=== PATIENT | male | born 1960 | race Hispanic/Latino ===

== ENCOUNTER 2019-02-02 13:42 | Inpatient (IN) | payer BC ==
--- NOTE | 2019-02-02 14:05 | Emergency Department Report ---
Blank Doc - Documentation Documentation: 58*-year-old male that presents with lung cancer. Stated has left [facility] due to insurance. Was admitted. This initial assessment/diagnostic orders/clinical plan/treatment(s) is/are subject to change based on patient's health status, clinical progression and re-assessment by fellow clinical providers in the ED. Further treatment and workup at subsequent clinical providers discretion. Patient/guardians urged not to elope from the ED as their condition may be serious if not clinically assessed and managed. Initial orders include: 1- Patient sent to MAIN ED for further evaluation and treatment 2- RN to get patients labs and scans from [facility].
[2019-02-02 17:51] LABS: Hematocrit 23.8 % (35.5-45.6); Hemoglobin 7.8 gm/dl (11.8-15.2); Mean Corpuscular HGB Conc 33 % (32-34); Mean Corpuscular Volume 94 fl (84-94); Platelet Count 438 K/mm3 (140-440); Red Blood Count 2.53 M/mm3 (3.65-5.03); Red Cell Distribution Width 14.1 % (13.2-15.2)
[2019-02-02] MEDS ORDERED: SODIUM CHLORIDE 0.9% 500 ML 500 ML IV ONE (17:58)
[2019-02-02] MEDS ORDERED: HYDROmorphone 1 MG/1 ML INJ IV ONE ×2 (17:58→19:42)
--- NOTE | 2019-02-02 18:02 | Emergency Department Report ---
ED General Adult HPI - General Chief complaint: Weakness Stated complaint: LEFT [facility]/LUNG CANCER Time Seen by Provider: 02/02/19 14:04 Source: patient, family, RN notes reviewed, old records reviewed Mode of arrival: Ambulatory Limitations: No Limitations - History of Present Illness Initial comments: This is a 58-year-old gentleman. Primary care Dr.: Dr. Reyes Oncology: Dr. Fountain; [phone] This is an unfortunate 58-year-old gentleman who is not known to this provider previously. On 01/09/2018, at [facility] the patient had a CT angiogram of the chest which showed a solid nodule with lobular borders measu ring 2.2 cm in the left upper lung lobe, highly concerning for potential primary malignancy. In addition, an enlarged left hilar lymph node conglomerate which partially encompasses the left upper lobe pulmonary artery branches was noted, and no pulmonary embolism is noted. There was concern for possible lung cancer, and the patient had an biopsy performed, which as per his oncologist verbal report was inconclusive as far as tissue diagnosis. The patient was evaluated at [facility] yesterday, with generalized pain, weakness, malaise and fatigue. Apparently he's been having progressive weakness, and poor oral intake. In the emergency room yesterday, he was found to be tachycardic to 118-132, was found to be hyperkalemic with potassium of 6.1, renal insufficiency with creatinine of 2.24, and a calcium of 17.2. He was treated with a hyperkalemia cocktail, and admitted to the medical service for hypercalcemia, and hyperkalemia. Apparently today he left that hospital AGAINST MEDICAL ADVICE, as per their includes documentation, the patient was in the process of transferring to [facility] due to insurance issues, but it is documented that the patient left AMA before this could be completed. On review of systems, the patient next oh completed headache or midline neck pain. He has left-sided superior scapular pain. He has no chest pain or abdominal pain. He has diffuse spinal pain. He has no bladder or bowel retention/incontinence In addition, it appears that the patient was given IV hydration and pamidronate 1 yesterday. -: Gradual Location: back, left, upper extremity Severity scale (0 -10): 10 Quality: aching Consistency: intermittent Improves with: rest Worsens with: movement - Related Data Home Medications Medication Instructions Recorded Confirmed Last Taken Allopurinol 02/02/19 Unknown Lisinopril [Zestril] 20 mg PO QDAY 02/02/19 02/02/19 Unknown cloNIDine [Catapres] 0.2 mg PO DAILY 02/02/19 02/02/19 Unknown fentaNYL [Fentanyl] 1 each TD QDAY 02/02/19 02/02/19 Unknown levoFLOXacin [Levaquin TAB] 500 mg PO QDAY 02/02/19 02/02/19 Unknown Allergies Allergy/AdvReac Type Severity Reaction Status Date / Time No Known Allergies Allergy Unverified 02/02/19 13:48 ED Review of Systems ROS: Stated complaint: LEFT [facility]/LUNG CANCER Other details as noted in HPI Constitutional: malaise, weakness Eyes: denies: eye discharge ENT: denies: congestion Respiratory: denies: wheezing Cardiovascular: denies: syncope Gastrointestinal: denies: abdominal pain, nausea, vomiting Genitourinary: denies: dysuria Musculoskeletal: back pain, arthralgia, myalgia Skin: denies: lesions Neurological: weakness Hematological/Lymphatic: denies: easy bleeding ED Past Medical Hx - Past Medical History Previous Medical History?: Yes Additional medical history: Lung cancer - Surgical History Past Surgical History?: No - Social History Smoking Status: Former Smoker Substance Use Type: None - Medications Home Medications: Home Medications Medication Instructions Recorded Confirmed Last Taken Type Allopurinol 02/02/19 Unknown History Lisinopril [Zestril] 20 mg PO QDAY 02/02/19 02/02/19 Unknown History cloNIDine [Catapres] 0.2 mg PO DAILY 02/02/19 02/02/19 Unknown History fentaNYL [Fentanyl] 1 each TD QDAY 02/02/19 02/02/19 Unknown History levoFLOXacin [Levaquin TAB] 500 mg PO QDAY 02/02/19 02/02/19 Unknown History ED Physical Exam - General Limitations: No Limitations General appearance: alert, anxious, in distress - Head Head exam: Present: atraumatic, normocephalic - Eye Eye exam: Present: normal appearance, EOMI. Absent: nystagmus - ENT ENT exam: Present: normal exam, normal orophraynx, mucous membranes moist, normal external ear exam - Neck Neck exam: Present: normal inspection, full ROM. Absent: tenderness, meningismus - Respiratory Respiratory exam: Present: normal lung sounds bilaterally, chest wall tenderness. Absent: respiratory distress - Cardiovascular Cardiovascular Exam: Present: normal rhythm, tachycardia, normal heart sounds. Absent: systolic murmur, diastolic murmur, rubs, gallop - GI/Abdominal GI/Abdominal exam: Present: soft. Absent: distended, tenderness, guarding, rebound, rigid, pulsatile mass - Rectal Rectal exam: Present: deferred - Extremities Exam Extremities exam: Present: normal inspection, full ROM, other (2+ pulses noted in the bilateral upper, lower extremities. There is no long bone tenderness. Musculoskeletal compartments are soft. The pelvis is stable.). Absent: pedal edema, calf tenderness - Back Exam Back exam: Present: normal inspection, full ROM, paraspinal tenderness, vertebral tenderness. Absent: CVA tenderness (R), CVA tenderness (L) - Neurological Exam Neurological exam: Present: alert, other (there is no facial droop. The tongue is midline. Extraocular movements are intact bilaterally. Patient speaking in full complete sentences. Shoulder shrug is intact bilaterally. Hearing is grossly intact bilaterally. Visual acuity intact to finger counting and color perception at a close distance. 5/5 strength 4 extremities. Sensation intact to light touch in 4 extremities.). Absent: motor sensory deficit - Psychiatric Psychiatric exam: Present: anxious - Skin Skin exam: Present: warm, dry. Absent: rash ED Course Vital Signs 02/02/19 02/02/19 02/02/19 13:57 17:33 17:46 Temperature 97.5 F L Pulse Rate 124 H 114 H Respiratory 20 18 Rate Blood Pressure 130/84 Blood Pressure 168/95 [Left] O2 Sat by Pulse 94 96 97 Oximetry 02/02/19 02/02/19 02/02/19 18:00 18:30 18:35 Temperature 99.6 F Pulse Rate 114 H Respiratory Rate Blood Pressure 168/95 171/103 Blood Pressure 171/96 [Left] O2 Sat by Pulse 96 96 Oximetry 02/02/19 02/02/19 02/02/19 19:00 19:30 20:00 Temperature Pulse Rate Respiratory Rate Blood Pressure 171/103 171/103 171/103 Blood Pressure [Left] O2 Sat by Pulse 97 97 97 Oximetry 02/02/19 02/02/19 02/02/19 20:30 20:50 21:46 Temperature Pulse Rate Respiratory 18 Rate Blood Pressure 171/103 173/105 Blood Pressure [Left] O2 Sat by Pulse 97 Oximetry - Reevaluation(s) Reevaluation #1: 02/02/19 19:43 Differential diagnosis, including not limited to: Hypercalcemia, dehydration, lung cancer, case management Assessment and plan: 58-year-old gentleman with evidence of renal insufficiency, hyperkalemia, hypercalcemia, malaise and fatigue. Also has reproducible bony pain. concerning for metastatic disease. Do not suspect fracture at this time, however, plain films of the chest, and left shoulder are ordered. Patient will be admitted to the medical service for correction of electrolyte derangement. The case was presented to Hospital physician, Dr. Patton, who had accepted the patient to the medical service. Discussed this with the family, who are amenable to hospitalization. Of note, there was concern that the patient's initial 22-gauge IV, placed by one of the students under supervision had cannulated the artery. This IV was not placed under my direct supervision, and I was not aware of this procedure until hours later. I evaluated the patient's left upper extremity, it was warm, well-perfused, had good pulses proximally and distal to the IV in question, the patient had good capillary refill, and the patient was noted to be neurovascularly intact. He did endorse that the IV was hurting him, so therefore I discontinue the IV myself, no pulsatile bleeding or expansile hematoma was noted, applied direct digital pressure to the insertion site, and i ordered a pressure dressing. Reevaluation #2: 02/02/19 21:45 X-ray of the shoulder negative for acute disease. X-ray of the chest shows a 10% pneumothorax, and known malignancy. Pneumothorax is likely secondary to patient's recent CT-guided biopsy. He is not hypoxic at this time. We will place the patient on a nonrebreather. This will be treated conservatively at this time. ED Medical Decision Making - Lab Data Result diagrams: 02/02/19 17:30 02/02/19 17:30 Vital Signs 02/02/19 02/02/19 02/02/19 13:57 17:33 18:35 Temperature 97.5 F L 99.6 F Pulse Rate 124 H 114 H 114 H Respiratory 20 18 Rate Blood Pressure 130/84 Blood Pressure 168/95 171/96 [Left] O2 Sat by Pulse 94 96 Oximetry Lab Results 02/02/19 02/02/19 02/02/19 Range/Units 17:30 17:30 18:25 WBC 11.6 H (4.5-11.0) K/mm3 RBC 2.53 L (3.65-5.03) M/mm3 Hgb 7.8 L (11.8-15.2) gm/dl Hct 23.8 L (35.5-45.6) % MCV 94 (84-94) fl MCH 31 (28-32) pg MCHC 33 (32-34) % RDW 14.1 (13.2-15.2) % Plt Count 438 (140-440) K/mm3 Sodium 140 (137-145) mmol/L Potassium 5.1 H (3.6-5.0) mmol/L Chloride 108.5 H (98-107) mmol/L Carbon Dioxide 16 L (22-30) mmol/L Anion Gap 21 mmol/L BUN 49 H (9-20) mg/dL Creatinine 1.9 H (0.8-1.5) mg/dL Estimated GFR 37 ml/min BUN/Creatinine Ratio 26 % Glucose 108 H (75-100) mg/dL Lactic Acid 0.90 (0.7-2.0) mmol/L Calcium > 13.0 H* (8.4-10.2) mg/dL Total Bilirubin 0.30 (0.1-1.2) mg/dL AST 203 H (5-40) units/L ALT 59 H (7-56) units/L Alkaline Phosphatase 334 H (35-129) units/L Troponin T (0.00-0.029) ng/mL Total Protein 7.6 (6.3-8.2) g/dL Albumin 3.8 L (3.9-5) g/dL Albumin/Globulin Ratio 1.0 % 02/02/19 Range/Units 18:25 WBC (4.5-11.0) K/mm3 RBC (3.65-5.03) M/mm3 Hgb (11.8-15.2) gm/dl Hct (35.5-45.6) % MCV (84-94) fl MCH (28-32) pg MCHC (32-34) % RDW (13.2-15.2) % Plt Count (140-440) K/mm3 Sodium (137-145) mmol/L Potassium (3.6-5.0) mmol/L Chloride (98-107) mmol/L Carbon Dioxide (22-30) mmol/L Anion Gap mmol/L BUN (9-20) mg/dL Creatinine (0.8-1.5) mg/dL Estimated GFR ml/min BUN/Creatinine Ratio % Glucose (75-100) mg/dL Lactic Acid (0.7-2.0) mmol/L Calcium (8.4-10.2) mg/dL Total Bilirubin (0.1-1.2) mg/dL AST (5-40) units/L ALT (7-56) units/L Alkaline Phosphatase (35-129) units/L Troponin T < 0.010 (0.00-0.029) ng/mL Total Protein (6.3-8.2) g/dL Albumin (3.9-5) g/dL Albumin/Globulin Ratio % - EKG Data -: EKG Interpreted by Pr EKG shows normal: sinus rhythm Rate: tachycardia - EKG Data When compared to previous EKG there are: previous EKG unavailable 02/02/19 19:46 There is no prior EKG available for comparison. The EKG shows a sinus tachycardia, 116 beats for minute, and will axis, the QTC is 395 ms, there are premature ventricular contractions, the EKG is abnormal, it is not consistent with ST elevation myocardial infarction. - Radiology Data Radiology results: pending, report reviewed, image reviewed Critical care attestation.: If time is entered above; I have spent that time in minutes in the direct care of this critically ill patient, excluding procedure time. ED Disposition Clinical Impression: Hypercalcemia of malignancy, Pneumothorax of left lung after biopsy, MIGEL (acute kidney injury) Lung cancer Qualifiers: Laterality: left Lung location: upper lobe of lung Qualified Code(s): C34.12 - Malignant neoplasm of upper lobe, left bronchus or lung Disposition: OP ADMIT IP TO THIS HOSP Is pt being admited?: Yes Condition: Fair
[2019-02-02 18:03] LABS: Alanine Aminotransferase 59 units/L (7-56); Albumin 3.8 g/dL (3.9-5); BUN/Creatinine Ratio 26; Blood Urea Nitrogen 49 mg/dL (9-20); Hemolysis Index 4
[2019-02-02 18:05] LABS: Calcium > 13.0 mg/dL (8.4-10.2)
[2019-02-02] MEDS ORDERED: SODIUM CHLORIDE 0.9% 1000 ML 1,000 ML IV ONE ×2 (18:11→20:06)
[2019-02-02] MEDS ORDERED: CALCITONIN,SALMON,SYNTHETIC 400 UNIT/2 ML INJ MDV IM STA (18:12)
[2019-02-02] MEDS ORDERED: ACETAMINOPHEN 325 MG TAB PO PRN (19:39)
[2019-02-02] MEDS ORDERED: ALBUTEROL 2.5 MG/3 ML NEBU IH PRN (19:39)
[2019-02-02 19:45] LABS: Basophils % (Manual) 0 % (0.0-1.8); Eosinophils % (Manual) 0 % (0.0-4.3); Total Cells Counted 100
[2019-02-02 19:46] LABS: Anisocytosis Few
--- NOTE | 2019-02-02 19:49 | History and Physical Report ---
History of Present Illness Chief complaint: I feel sick History of present illness: 58 YO Male with STEFANO Lung Mass suspicious for Lung Cancer S/P lung biopsy that was inconclusive, Malnutrition, Nicotine Dependence presents to ED for evaluation. Pt states that the has experienced 30lbs weight loss over the past 1 month, progressive weakness, malaise, and fatigue over the past 1 month with worsening symptoms over the past 2 weeks.Pt transported to [facility] via private vehicle. Pt seen and evaluated in ED and found to have STEFANO Lung Mass, 10% Pneumothorax, SIRS, Acidosis, Anemia and MIGEL. Pt admitted to IMCU and treated w ith IV antibiotic therapy, as well as pain control and IVF resuscitation therapy. Interventional Radiology consulted in ED. Pt denies fever, chills, palpitations, NVD, Trauma, BRBPR, Skin rash, or recent ill contacts. Advanced care planning conducted in ED. Pt and family acknowledge understanding and agreement with care plan. No prior admission for revi Medications and Allergies Allergies Allergy/AdvReac Type Severity Reaction Status Date / Time No Known Allergies Allergy Unverified 02/02/19 13:48 Home Medications Medication Instructions Recorded Confirmed Last Taken Type Allopurinol 02/02/19 Unknown History Lisinopril [Zestril] 20 mg PO QDAY 02/02/19 02/02/19 Unknown History cloNIDine [Catapres] 0.2 mg PO DAILY 02/02/19 02/02/19 Unknown History fentaNYL [Fentanyl] 1 each TD 02/02/19 01/30/19 16:00 History levoFLOXacin [Levaquin TAB] 500 mg PO QDAY 02/02/19 02/02/19 Unknown History Active Meds: Active Medications Acetaminophen (Tylenol) 650 mg PO Q4H PRN PRN Reason: Pain MILD(1-3)/Fever >100.5/CLEMENTS Albuterol (Proventil) 2.5 mg IH Q4HRT PRN PRN Reason: Shortness Of Breath Sodium Chloride (Nacl 0.45% 1000 Ml) 1,000 mls @ 75 mls/hr IV DIRECT MURIEL Ondansetron HCl (Zofran) 4 mg IV Q8H PRN PRN Reason: Nausea And Vomiting Sodium Bicarbonate (Sodium Bicarbonate 50meq Syringe) 50 meq IV ONCE ONE Stop: 02/02/19 20:48 Sodium Bicarbonate (Sodium Bicarbonate 50meq Syringe) 50 meq IV ONCE ONE Stop: 02/02/19 23:31 Sodium Chloride (Sodium Chloride Flush Syringe 10 Ml) 10 ml IV BID MURIEL Sodium Chloride (Sodium Chloride Flush Syringe 10 Ml) 10 ml IV PRN PRN PRN Reason: LINE FLUSH Exam - Constitutional Vitals: Temp Pulse Resp BP Pulse Ox 99.6 F 114 H 18 171/96 96 02/02/19 18:35 02/02/19 18:35 02/02/19 17:33 02/02/19 18:35 02/02/19 17:33 Results - Labs CBC & Chem 7: 02/02/19 17:30 02/02/19 17:30 Labs: Abnormal lab results 02/02/19 02/02/19 Range/Units 17:30 17:30 WBC 11.6 H (4.5-11.0) K/mm3 RBC 2.53 L (3.65-5.03) M/mm3 Hgb 7.8 L (11.8-15.2) gm/dl Hct 23.8 L (35.5-45.6) % Seg Neuts % (Manual) 84.0 H (40.0-70.0) % Lymphocytes % (Manual) 12.0 L (13.4-35.0) % Seg Neutrophils # Man 9.7 H (1.8-7.7) K/mm3 Potassium 5.1 H (3.6-5.0) mmol/L Chloride 108.5 H (98-107) mmol/L Carbon Dioxide 16 L (22-30) mmol/L BUN 49 H (9-20) mg/dL Creatinine 1.9 H (0.8-1.5) mg/dL Glucose 108 H (75-100) mg/dL Calcium > 13.0 H* (8.4-10.2) mg/dL AST 203 H (5-40) units/L ALT 59 H (7-56) units/L Alkaline Phosphatase 334 H (35-129) units/L Albumin 3.8 L (3.9-5) g/dL Assessment and Plan - Patient Problems (1) SIRS (systemic inflammatory response syndrome) Current Visit: Yes Status: Acute Plan to address problem: CBC,CMP, Chest X ray, Urinalysis, IV antibiotic therapy, Admit to IMCU. (2) Pneumothorax of left lung after biopsy Current Visit: Yes Status: Acute Plan to address problem: Supplemental oxygen, continuous pulse oximetry, incentive spirometry, Repeat CXR in a.m, Surgery team consulted. Pt care discussed. Heimlich valve at bedside, pain control. (3) Acidosis Current Visit: Yes Status: Acute Plan to address problem: IV bicarbonate therapy, supportive care, repeat bmp (4) Lung cancer Current Visit: Yes Status: Acute Qualifiers: Laterality: left Lung location: upper lobe of lung Qualified Code(s): C34.12 - Malignant neoplasm of upper lobe, left bronchus or lung Plan to address problem: IR consulted for Lung CT guided lung biopsy, (5) MIGEL (acute kidney injury) Current Visit: Yes Status: Acute Plan to address problem: IVF resuscitation therapy, monitor uop q shift, repeat bmp, monitor serum creatnine. (6) Hypercalcemia of malignancy Current Visit: Yes Status: Acute Plan to address problem: Calcium level, Ionized calcium level, Calcitonin in ED. (7) Anemia aplastic aregenerative Current Visit: Yes Status: Acute Plan to address problem: Supportive care, NO transfusion at this time, supportive care. (8) DVT prophylaxis Current Visit: Yes Status: Acute Plan to address problem: SCD to BLE while in bed.
[2019-02-02] MEDS ORDERED: SODIUM CHLORIDE 0.45% 1000 ML 1,000 ML IV SCH (20:00)
[2019-02-02] MEDS ORDERED: MORPHINE 4 MG/1 ML INJ IV ONE (20:30)
[2019-02-02] MEDS ORDERED: MORPHINE 2 MG/1 ML INJ ONE (20:31)
--- NOTE | 2019-02-02 20:40 | XRay Report ---
HISTORY:left shoudler COMPARISON: None. TECHNIQUE: AP lateral and Y views were obtained FINDINGS: Bones: No fracture or dislocation. Joint spaces: Maintained. Soft tissues: No significant abnormality. Additional findings: Questionable pulmonary nodule left lung IMPRESSION: 1. Possible pulmonary nodules left lung Signer Name: Deangelo Armas MD Signed: 02/02/2019 8:36 PM Workstation Name: [id number]
--- NOTE | 2019-02-02 20:41 | XRay Report ---
CHEST 1 VIEW INDICATION / CLINICAL INFORMATION: SOB. COMPARISON: None available. FINDINGS: SUPPORT DEVICES: None. HEART / MEDIASTINUM: No significant abnormality. LUNGS / PLEURA: There is nearly 2 cm nodule in the left midlung and apparent left hilar adenopathy adams spicious for neoplasm. There is also a 10% left-sided pneumothorax. No effusion is seen. The right vandana ng is clear. ADDITIONAL FINDINGS: No significant additional findings. IMPRESSION: 1 I suspect left lung neoplasm. A left-sided pneumothorax is present as well. Signer Name: Som Reilly MD Signed: 02/02/2019 8:37 PM Workstation Name: [id number]
[2019-02-02] MEDS ORDERED: SODIUM BICARB 8.4% 50 MEQ/50 ML SYRINGE IV ONE ×2 (20:47→23:30)
[2019-02-02] MEDS ORDERED: SODIUM CHLORIDE 0.9% 1000 ML 1,000 ML IV SCH (21:00)
[2019-02-02] MEDS: MORPHINE 2 MG/1 ML INJ IV PRN (23:34)
[2019-02-03] MEDS: MORPHINE 2 MG/1 ML INJ IV PRN ×3 (04:01→17:46)
[2019-02-03 07:30] LABS: Basophils % (Auto) 0.3 % (0.0-1.8); Eosinophils % (Auto) 0.2 % (0.0-4.3); Hematocrit 30.1 % (35.5-45.6); Hemoglobin 10.1 gm/dl (11.8-15.2); Lymphocytes % (Auto) 12.5 % (13.4-35.0); Mean Corpuscular HGB Conc 34 % (32-34); Mean Corpuscular Volume 93 fl (84-94); Monocytes # (Auto) 0.8 K/mm3 (0.0-0.8); Monocytes % (Auto) 9.9 % (0.0-7.3); Platelet Count 340 K/mm3 (140-440); Red Blood Count 3.26 M/mm3 (3.65-5.03); Red Cell Distribution Width 14.3 % (13.2-15.2)
[2019-02-03 08:05] LABS: Albumin 3.3 g/dL (3.9-5)
[2019-02-03 08:12] LABS: Calcium 12.5 mg/dL (8.4-10.2)
[2019-02-03] MEDS: ONDANSETRON 4 MG/2 ML INJ IV PRN ×2 (08:49→17:48)
--- NOTE | 2019-02-03 08:55 | Progress Note ---
Assessment and Plan Full conult dictated 58 y/o male 10% L pneumothorax post lung biopsy from last wk. asymptomatic stable no need for heimlilch tube insertion at this time. may consult pulmonary if necessary would recommend to hold off on any repeat lung biopsy until pneumo completely resolves will follow prn. History of Present Illness Chief complaint: I feel sick History of present illness: 58 YO Male with STEFANO Lung Mass suspicious for Lung Cancer S/P lung biopsy that was inconclusive, Malnutrition, Nicotine Dependence presents to ED for evaluation. Pt states that the has experienced 30lbs weight loss over the past 1 month, progressive weakness, malaise, and fatigue over the past 1 month with worsening symptoms over the past 2 weeks.Pt transported to [facility] via private ve hicle. Pt seen and evaluated in ED and found to have STEFANO Lung Mass, 10% Pneumothorax, SIRS, Acidosis, Anemia and MIGEL. Pt admitted to IMCU and treated with IV antibiotic therapy, as well as pain control and IVF resuscitation therapy. Interventional Radiology consulted in ED. Pt denies fever, chills, palpitations, NVD, Trauma, BRBPR, Skin rash, or recent ill contacts. Advanced care planning conducted in ED. Pt and family acknowledge understanding and agreement with care plan. No prior admission for revi Selected Entries 02/03/19 02/03/19 02/03/19 03:51 04:00 08:00 Temperature 98.1 F Pulse Rate [ 109 H From Monitor] Respiratory 14 Rate Objective Vital Signs - 12hr 02/02/19 02/02/19 02/02/19 21:00 21:16 21:30 Temperature Pulse Rate Pulse Rate [ From Monitor] Respiratory Rate Blood Pressure 171/103 171/103 171/103 O2 Sat by Pulse 94 96 83 L Oximetry 02/02/19 02/02/19 02/02/19 21:46 22:00 22:15 Temperature Pulse Rate Pulse Rate [ From Monitor] Respiratory Rate Blood Pressure 173/105 165/98 165/98 O2 Sat by Pulse 93 95 Oximetry 02/02/19 02/02/19 02/02/19 22:30 22:45 23:16 Temperature Pulse Rate Pulse Rate [ From Monitor] Respiratory Rate Blood Pressure 158/91 158/91 158/91 O2 Sat by Pulse 93 95 85 Oximetry 02/02/19 02/02/19 02/02/19 23:55 23:56 23:59 Temperature 99.1 F Pulse Rate 111 H 113 H Pulse Rate [ From Monitor] Respiratory 26 H Rate Blood Pressure 158/91 O2 Sat by Pulse 96 Oximetry 02/03/19 02/03/19 02/03/19 00:00 00:01 00:11 Temperature Pulse Rate 110 H 117 H Pulse Rate [ 88 From Monitor] Respiratory 18 24 28 H Rate Blood Pressure 158/91 158/91 O2 Sat by Pulse 99 96 95 Oximetry 02/03/19 02/03/19 02/03/19 00:21 00:31 00:41 Temperature Pulse Rate 114 H 112 H 115 H Pulse Rate [ From Monitor] Respiratory 15 24 21 Rate Blood Pressure 158/91 158/91 158/91 O2 Sat by Pulse 96 96 95 Oximetry 02/03/19 02/03/19 02/03/19 00:51 01:01 01:11 Temperature Pulse Rate 116 H 112 H 112 H Pulse Rate [ From Monitor] Respiratory 17 13 25 H Rate Blood Pressure 158/91 158/91 158/91 O2 Sat by Pulse 96 96 95 Oximetry 02/03/19 02/03/19 02/03/19 01:21 01:31 01:41 Temperature Pulse Rate 115 H Pulse Rate [ From Monitor] Respiratory 23 Rate Blood Pressure 158/91 158/91 158/91 O2 Sat by Pulse 96 98 83 L Oximetry 02/03/19 02/03/19 02/03/19 01:51 02:01 02:11 Temperature Pulse Rate 126 H 122 H 119 H Pulse Rate [ From Monitor] Respiratory 23 23 21 Rate Blood Pressure 141/90 141/90 141/90 O2 Sat by Pulse 95 95 96 Oximetry 02/03/19 02/03/19 02/03/19 02:21 02:31 02:41 Temperature Pulse Rate 121 H 117 H 113 H Pulse Rate [ From Monitor] Respiratory 23 22 23 Rate Blood Pressure 141/90 141/90 141/90 O2 Sat by Pulse 96 96 95 Oximetry 02/03/19 02/03/19 02/03/19 02:51 03:00 03:11 Temperature Pulse Rate 113 H 110 H 110 H Pulse Rate [ From Monitor] Respiratory 15 16 15 Rate Blood Pressure 141/90 141/90 O2 Sat by Pulse 96 96 96 Oximetry 02/03/19 02/03/19 02/03/19 03:21 03:31 03:41 Temperature Pulse Rate 114 H 118 H 116 H Pulse Rate [ From Monitor] Respiratory 23 17 21 Rate Blood Pressure 141/90 141/90 141/90 O2 Sat by Pulse 97 96 96 Oximetry 02/03/19 02/03/19 02/03/19 03:51 03:55 04:00 Temperature Pulse Rate 108 H 111 H Pulse Rate [ 109 H From Monitor] Respiratory 14 22 Rate Blood Pressure 141/90 O2 Sat by Pulse 97 97 Oximetry 02/03/19 02/03/19 02/03/19 04:35 08:00 08:28 Temperature 98.6 F 98.1 F Pulse Rate Pulse Rate [ From Monitor] Respiratory Rate Blood Pressure O2 Sat by Pulse 97 Oximetry - Labs 02/03/19 06:41 02/03/19 06:41 Diabetes panel 02/02/19 02/03/19 Range/Units 17:30 06:41 Sodium 140 147 H (137-145) mmol/L Potassium 5.1 H 4.7 (3.6-5.0) mmol/L Chloride 108.5 H 112.9 H (98-107) mmol/L Carbon Dioxide 16 L 17 L (22-30) mmol/L BUN 49 H 44 H (9-20) mg/dL Creatinine 1.9 H 2.0 H (0.8-1.5) mg/dL Glucose 108 H 105 H (75-100) mg/dL Calcium > 13.0 H* 12.5 H* (8.4-10.2) mg/dL AST 203 H 165 H (5-40) units/L ALT 59 H 48 (7-56) units/L Alkaline Phosphatase 334 H 292 H (35-129) units/L Total Protein 7.6 6.6 (6.3-8.2) g/dL Albumin 3.8 L 3.3 L (3.9-5) g/dL Calcium panel 02/02/19 02/03/19 Range/Units 17:30 06:41 Calcium > 13.0 H* 12.5 H* (8.4-10.2) mg/dL Albumin 3.8 L 3.3 L (3.9-5) g/dL Pituitary panel 02/02/19 02/03/19 Range/Units 17:30 06:41 Sodium 140 147 H (137-145) mmol/L Potassium 5.1 H 4.7 (3.6-5.0) mmol/L Chloride 108.5 H 112.9 H (98-107) mmol/L Carbon Dioxide 16 L 17 L (22-30) mmol/L BUN 49 H 44 H (9-20) mg/dL Creatinine 1.9 H 2.0 H (0.8-1.5) mg/dL Glucose 108 H 105 H (75-100) mg/dL Calcium > 13.0 H* 12.5 H* (8.4-10.2) mg/dL Adrenal panel 02/02/19 02/03/19 Range/Units 17:30 06:41 Sodium 140 147 H (137-145) mmol/L Potassium 5.1 H 4.7 (3.6-5.0) mmol/L Chloride 108.5 H 112.9 H (98-107) mmol/L Carbon Dioxide 16 L 17 L (22-30) mmol/L BUN 49 H 44 H (9-20) mg/dL Creatinine 1.9 H 2.0 H (0.8-1.5) mg/dL Glucose 108 H 105 H (75-100) mg/dL Calcium > 13.0 H* 12.5 H* (8.4-10.2) mg/dL Total Bilirubin 0.30 0.30 (0.1-1.2) mg/dL AST 203 H 165 H (5-40) units/L ALT 59 H 48 (7-56) units/L Alkaline Phosphatase 334 H 292 H (35-129) units/L Total Protein 7.6 6.6 (6.3-8.2) g/dL Albumin 3.8 L 3.3 L (3.9-5) g/dL
--- NOTE | 2019-02-03 09:50 | Consultation ---
History of Present Illness - Reason for Consult Consult date: 02/03/19 left lung nodules - History of Present Illness A patient with a history of left lung nodules who initially presented at [facility] for which he underwent lung biopsy. 3 core samples were obtained however, they were nondiagnostic. This procedure was performed one week ago. Chest x-ray demonstrates the patient still has a minimal pneumothorax on his procedure. Patient is uncertain if he underwent CT scanning for diagnostic purposes at that time other than simply for his biopsy. Medications and Allergies Allergies Allergy/AdvReac Type Severity Reaction Status Date / Time No Known Allergies Allergy Unverified 02/02/19 13:48 Home Medications Medication Instructions Recorded Confirmed Last Taken Type Allopurinol [Zyloprim] 100 mg PO QDAY 02/02/19 02/03/19 Unknown History Lisinopril [Zestril] 20 mg PO QDAY 02/02/19 02/02/19 Unknown History cloNIDine [Catapres] 0.2 mg PO DAILY 02/02/19 02/02/19 Unknown History fentaNYL [Fentanyl] 1 each TD QDAY 02/02/19 02/03/19 Unknown History levoFLOXacin [Levaquin TAB] 500 mg PO QDAY 02/02/19 02/02/19 Unknown History Active Meds: Active Medications Acetaminophen (Tylenol) 650 mg PO Q4H PRN PRN Reason: Pain MILD(1-3)/Fever >100.5/CLEMENTS Last Admin: 02/02/19 23:35 Dose: 650 mg Documented by: Albuterol (Proventil) 2.5 mg IH Q4HRT PRN PRN Reason: Shortness Of Breath Furosemide (Lasix) 20 mg IV 0600,1800 MURIEL Sodium Chloride (Nacl 0.9% 1000 Ml) 1,000 mls @ 100 mls/hr IV DIRECT MURIEL Last Admin: 02/03/19 04:05 Dose: 75 mls/hr Documented by: Levofloxacin/Dextrose (Levaquin 250mg/50ml) 250 mg in 50 mls @ 50 mls/hr IV Q24H MURIEL; Protocol Morphine Sulfate (Morphine) 2 mg IV Q4H PRN PRN Reason: Pain, Moderate (4-6) Last Admin: 02/03/19 07:53 Dose: 2 mg Documented by: Ondansetron HCl (Zofran) 4 mg IV Q8H PRN PRN Reason: Nausea And Vomiting Last Admin: 02/03/19 08:49 Dose: 4 mg Documented by: Oxycodone/Acetaminophen (Percocet 5/325) 1 tab PO Q6H PRN PRN Reason: Pain, Moderate (4-6) Sodium Chloride (Sodium Chloride Flush Syringe 10 Ml) 10 ml IV BID MURIEL Last Admin: 02/02/19 23:36 Dose: 10 ml Documented by: Sodium Chloride (Sodium Chloride Flush Syringe 10 Ml) 10 ml IV PRN PRN PRN Reason: LINE FLUSH Last Admin: 02/03/19 07:53 Dose: 10 ml Documented by: Review of Systems All systems: negative Exam - Constitutional Vitals: Temp Pulse Resp BP Pulse Ox 98.1 F 109 H 22 141/90 97 02/03/19 08:00 02/03/19 04:00 02/03/19 04:00 02/03/19 03:51 02/03/19 08:28 General appearance: Present: no acute distress - EENT Eyes: Present: EOM intact ENT: hearing intact - Neck Neck: Present: supple, normal ROM - Respiratory Respiratory effort: normal - Abdominal General gastrointestinal: Present: deferred Male genitourinary: Present: deferred - Rectal Rectal Exam: deferred - Psychiatric Psychiatric: appropriate mood/affect, cooperative - Neurologic Neurologic: no focal deficits Results - Labs CBC & Chem 7: 02/03/19 06:41 02/03/19 06:41 Labs: Abnormal lab results 02/02/19 02/02/19 02/03/19 Range/Units 17:30 17:30 06:41 WBC 11.6 H (4.5-11.0) K/mm3 RBC 2.53 L 3.26 L (3.65-5.03) M/mm3 Hgb 7.8 L 10.1 L (11.8-15.2) gm/dl Hct 23.8 L 30.1 L D (35.5-45.6) % Lymph % (Auto) 12.5 L (13.4-35.0) % [place] % (Auto) 9.9 H (0.0-7.3) % Lymph # 1.0 L (1.2-5.4) K/mm3 Seg Neutrophils % 77.1 H (40.0-70.0) % Seg Neuts % (Manual) 84.0 H (40.0-70.0) % Lymphocytes % (Manual) 12.0 L (13.4-35.0) % Seg Neutrophils # Man 9.7 H (1.8-7.7) K/mm3 Sodium (137-145) mmol/L Potassium 5.1 H (3.6-5.0) mmol/L Chloride 108.5 H (98-107) mmol/L Carbon Dioxide 16 L (22-30) mmol/L BUN 49 H (9-20) mg/dL Creatinine 1.9 H (0.8-1.5) mg/dL Glucose 108 H (75-100) mg/dL Calcium > 13.0 H* (8.4-10.2) mg/dL AST 203 H (5-40) units/L ALT 59 H (7-56) units/L Alkaline Phosphatase 334 H (35-129) units/L Albumin 3.8 L (3.9-5) g/dL 02/03/19 Range/Units 06:41 WBC (4.5-11.0) K/mm3 RBC (3.65-5.03) M/mm3 Hgb (11.8-15.2) gm/dl Hct (35.5-45.6) % Lymph % (Auto) (13.4-35.0) % [place] % (Auto) (0.0-7.3) % Lymph # (1.2-5.4) K/mm3 Seg Neutrophils % (40.0-70.0) % Seg Neuts % (Manual) (40.0-70.0) % Lymphocytes % (Manual) (13.4-35.0) % Seg Neutrophils # Man (1.8-7.7) K/mm3 Sodium 147 H (137-145) mmol/L Potassium (3.6-5.0) mmol/L Chloride 112.9 H (98-107) mmol/L Carbon Dioxide 17 L (22-30) mmol/L BUN 44 H (9-20) mg/dL Creatinine 2.0 H (0.8-1.5) mg/dL Glucose 105 H (75-100) mg/dL Calcium 12.5 H* (8.4-10.2) mg/dL AST 165 H (5-40) units/L ALT (7-56) units/L Alkaline Phosphatase 292 H (35-129) units/L Albumin 3.3 L (3.9-5) g/dL - Imaging and Cardiology Chest x-ray: image reviewed Assessment and Plan Patient with multiple left small pulmonary masses. He is status post biopsy with residual left pneumothorax. At this time, this would preclude a repeat attempt. Patient may be discharged for follow-up in approximately 1 week for lung biopsy at that time. The patient's most appropriate pulmonary nodule may be easier to biopsy from an endobronchial standpoint and would defer to pulmonology in that regards. Patient will need a diagnostic CT scan of the chest with IV contrast however, his creatinine is elevated at 1.9 at this time.
--- NOTE | 2019-02-03 10:11 | Consultation ---
History of Present Illness - Reason for Consult Consult date: 02/03/19 acute renal failure, other (Hypercalcemia) - History of Present Illness The patient is a 58 YO male with history significant for Lung mass, Hepatitis and Alcohol dependency who presented to [facility] ED yesterday with c/o progressive weakness, malaise, and fatigue over the past 1 month. he lost about 30lbs of weight loss over the past 1 month. Patient was admitted at [facility] between 02/01 and 02/02 for the same complaint. He left AMA yesterday and came to [facility]. Pt was previously evaluated at [facility] for SOB and back pain where he was found to have lung nodules. He is s/p CT guided bx but the results were inconclusive and his oncologist Dr. Fountain recommended for a repeat bx. Pt reports he's progressively getting weaker and having poor PO intake. Denies F/C, CP, SOB, n/v/d. +generalized abdominal pain and back pain. Labs significant for creatinine 1.9, Calcium >13, K 5.1 and bicarb 16. Pt admitted to IMCU for treatment of MIGEL, Hypercalcemia, SIRS and R pneumothorax. Patient received IV Pamidronate 90 mg on 02/01. Nephrology was consulted for further evaluation. Past History Past Medical History: hypertension, other (Lung nodules, Gout) Medications and Allergies Allergies Allergy/AdvReac Type Severity Reaction Status Date / Time No Known Allergies Allergy Unverified 02/02/19 13:48 Home Medications Medication Instructions Recorded Confirmed Last Taken Type Allopurinol [Zyloprim] 100 mg PO QDAY 02/02/19 02/03/19 Unknown History Lisinopril [Zestril] 20 mg PO QDAY 02/02/19 02/02/19 Unknown History cloNIDine [Catapres] 0.2 mg PO DAILY 02/02/19 02/02/19 Unknown History fentaNYL [Fentanyl] 1 each TD QDAY 02/02/19 02/03/19 Unknown History levoFLOXacin [Levaquin TAB] 500 mg PO QDAY 02/02/19 02/02/19 Unknown History Active Meds: Active Medications Acetaminophen (Tylenol) 650 mg PO Q4H PRN PRN Reason: Pain MILD(1-3)/Fever >100.5/CLEMENTS Last Admin: 02/02/19 23:35 Dose: 650 mg Documented by: Albuterol (Proventil) 2.5 mg IH Q4HRT PRN PRN Reason: Shortness Of Breath Furosemide (Lasix) 20 mg IV 0600,1800 [facility] Sodium Chloride (Nacl 0.9% 1000 Ml) 1,000 mls @ 100 mls/hr IV DIRECT MURIEL Last Admin: 02/03/19 04:05 Dose: 75 mls/hr Documented by: Levofloxacin/Dextrose (Levaquin 250mg/50ml) 250 mg in 50 mls @ 50 mls/hr IV Q24H MURIEL; Protocol Morphine Sulfate (Morphine) 2 mg IV Q4H PRN PRN Reason: Pain, Moderate (4-6) Last Admin: 02/03/19 07:53 Dose: 2 mg Documented by: Ondansetron HCl (Zofran) 4 mg IV Q8H PRN PRN Reason: Nausea And Vomiting Last Admin: 02/03/19 08:49 Dose: 4 mg Documented by: Oxycodone/Acetaminophen (Percocet 5/325) 1 tab PO Q6H PRN PRN Reason: Pain, Moderate (4-6) Sodium Chloride (Sodium Chloride Flush Syringe 10 Ml) 10 ml IV BID MURIEL Last Admin: 02/02/19 23:36 Dose: 10 ml Documented by: Sodium Chloride (Sodium Chloride Flush Syringe 10 Ml) 10 ml IV PRN PRN PRN Reason: LINE FLUSH Last Admin: 02/03/19 07:53 Dose: 10 ml Documented by: Review of Systems Constitutional: weight loss, anorexia, fatigue, weakness, poor appetite, no weight gain, no fever, no chills Cardiovascular: high blood pressure, no chest pain, no orthopnea, no leg edema Respiratory: cough, no hemoptysis Gastrointestinal: no abdominal pain, no nausea, no vomiting, no diarrhea, no melena Genitourinary Male: no hematuria Rectal: no bleeding Neurological: no paralysis, no seizures, no syncope, no change in speech, no change in mentation, no confusion, no memory loss Exam - Vital Signs Vital signs: Vital Signs Temp Pulse Resp BP Pulse Ox 97.5 F L 124 H 20 130/84 94 02/02/19 13:57 02/02/19 13:57 02/02/19 13:57 02/02/19 13:57 02/02/19 13:57 - General Appearance General appearance: well-developed, appears stated age, other (no distress) EENT: ATNC, PERRL, hearing intact, vision intact Neck: Present: neck supple, trachea midline Respiratory: Clear to Ascultation Heart: regular, S1S2, no murmurs Gastrointestinal: Present: normoactive bowel sounds. Absent: tenderness, distended Integumentary: no rash, warm and dry Neurologic: no focal deficit, no asterixis, alert and oriented x3 Musculoskeletal: Present: other (no edema) Results - Lab Results 02/03/19 06:41 02/03/19 06:41 Most recent lab results Calcium 12.5 mg/dL (8.4-10.2) H* 02/03/19 06:41 - Image Kidney/bladder ultrasound: pending Assessment and Plan 1. Severe hypercalcemia: Initial calcium was 17.2 at [facility]. Likely related to Malignancy. PTH level was low. PTH related peptide is pending. S/p Pamidronate. Calcium level is gradually improving. Continue IV fluids. Monitor. 2. Acute kidney injury: UA is bland. Renal US ordered. Baseline renal function is unknown. Continue IV fluids. Monitor renal function. Avoid nephrotoxic agents. Meds dosage based on GFR. 3. FEN: Hyperkalemia, improved. Hypernatremia, monitor. Metabolic acidosis, monitor. 4. Lung mass. 5. Elevated transaminases: Improving. 6. SIRS. 7. Hypertension. 8. Normocytic anemia: POA. 9. Tobacco use: Counseled.
--- NOTE | 2019-02-03 10:29 | Progress Note ---
Assessment and Plan / SIRS (systemic inflammatory response syndrome) due to underlying malignancy - cont abx for now / Pneumothorax of left lung after biopsy, spontaneously resolved - cont to monitor, supplemental O2 weakness NEEDED / Lung cancer, need for another CT-guided biopsy - vascular surgery consult, we'll follow recommendation / MIGEL (acute kidney injury), with vasomotor nephropathy -Continue to monitor her renal function, continue IV fluid / Hypercalcemia of malignancy, s/p Calcitonin in ED, also given IV fluid and Lasix We'll continue to monitor BMP /Hypophosphatemia and hypomagnesemia, continue to replete / Anemia of chronic disease - H&H stable, continue to monitor /DVT prophylaxis, SCD Brief History: 58 YO Male with STEFANO Lung Mass suspicious for Lung Cancer S/P lung biopsy that was inconclusive, Malnutrition, Nicotine Dependence presents to ED for progressive weakness, malaise, and fatigue over the past 1 month with worsening symptoms over the past 2 weeks. Pt seen and evaluated in ED and found to have STEFANO Lung Mass, 10% Pneumothorax, SIRS, Acidosis, Anemia and MIGEL. Pt admitted to IMCU and treated with IV antibiotic therapy, as well as pain control and IVF resuscitation therapy. Interventional Radiology consulted in ED for possible biopsy. Subjective Date of service: 02/03/19 Interval history: Patient seen and examined denies any acute issue, waiting on LUng biopsy Objective - Exam Narrative Exam: GENERAL: well-developed 58-year-old male on bed appeared to be in no discomfort. HEENT: Normocephalic. Atraumatic. No conjunctival congestion or icterus. Patient has moist mucous membranes. NECK: Supple. Trachea midline. CHEST/LUNGS: Clear to auscultated bilaterally, breathing nonlabored. No wheezes crackles or rhonchi. HEART/CARDIOVASCULAR: Regular in rate and rhythm. S1 and S2 positive. ABDOMEN: Abdomen is soft, nontender. Patient has normal bowel sounds. SKIN: There is no rash. Warm and dry. NEURO: No focal motor deficit. Follows command. MUSCULOSKELETAL: No joint effusion or tenderness. EXTRIMITY: No edema, no cyanosis or clubbing. PSYCH: Cooperative. - Constitutional Vitals: Vital Signs - 12hr 02/02/19 02/02/19 02/02/19 22:30 22:45 23:16 Temperature Pulse Rate Pulse Rate [ From Monitor] Respiratory Rate Blood Pressure 158/91 158/91 158/91 O2 Sat by Pulse 93 95 85 Oximetry 02/02/19 02/02/19 02/02/19 23:55 23:56 23:59 Temperature 99.1 F Pulse Rate 111 H 113 H Pulse Rate [ From Monitor] Respiratory 26 H Rate Blood Pressure 158/91 O2 Sat by Pulse 96 Oximetry 02/03/19 02/03/19 02/03/19 00:00 00:01 00:11 Temperature Pulse Rate 110 H 117 H Pulse Rate [ 88 From Monitor] Respiratory 18 24 28 H Rate Blood Pressure 158/91 158/91 O2 Sat by Pulse 99 96 95 Oximetry 02/03/19 02/03/19 02/03/19 00:21 00:31 00:41 Temperature Pulse Rate 114 H 112 H 115 H Pulse Rate [ From Monitor] Respiratory 15 24 21 Rate Blood Pressure 158/91 158/91 158/91 O2 Sat by Pulse 96 96 95 Oximetry 02/03/19 02/03/19 02/03/19 00:51 01:01 01:11 Temperature Pulse Rate 116 H 112 H 112 H Pulse Rate [ From Monitor] Respiratory 17 13 25 H Rate Blood Pressure 158/91 158/91 158/91 O2 Sat by Pulse 96 96 95 Oximetry 02/03/19 02/03/19 02/03/19 01:21 01:31 01:41 Temperature Pulse Rate 115 H Pulse Rate [ From Monitor] Respiratory 23 Rate Blood Pressure 158/91 158/91 158/91 O2 Sat by Pulse 96 98 83 L Oximetry 02/03/19 02/03/19 02/03/19 01:51 02:01 02:11 Temperature Pulse Rate 126 H 122 H 119 H Pulse Rate [ From Monitor] Respiratory 23 23 21 Rate Blood Pressure 141/90 141/90 141/90 O2 Sat by Pulse 95 95 96 Oximetry 02/03/19 02/03/19 02/03/19 02:21 02:31 02:41 Temperature Pulse Rate 121 H 117 H 113 H Pulse Rate [ From Monitor] Respiratory 23 22 23 Rate Blood Pressure 141/90 141/90 141/90 O2 Sat by Pulse 96 96 95 Oximetry 02/03/19 02/03/19 02/03/19 02:51 03:00 03:11 Temperature Pulse Rate 113 H 110 H 110 H Pulse Rate [ From Monitor] Respiratory 15 16 15 Rate Blood Pressure 141/90 141/90 O2 Sat by Pulse 96 96 96 Oximetry 02/03/19 02/03/19 02/03/19 03:21 03:31 03:41 Temperature Pulse Rate 114 H 118 H 116 H Pulse Rate [ From Monitor] Respiratory 23 17 21 Rate Blood Pressure 141/90 141/90 141/90 O2 Sat by Pulse 97 96 96 Oximetry 02/03/19 02/03/19 02/03/19 03:51 03:55 04:00 Temperature Pulse Rate 108 H 111 H 112 H Pulse Rate [ 109 H From Monitor] Respiratory 14 23 Rate Blood Pressure 141/90 136/91 O2 Sat by Pulse 97 97 Oximetry 02/03/19 02/03/19 02/03/19 04:35 05:01 06:01 Temperature 98.6 F Pulse Rate 107 H 96 H Pulse Rate [ From Monitor] Respiratory 25 H 21 Rate Blood Pressure 136/91 136/91 O2 Sat by Pulse 94 93 Oximetry 02/03/19 02/03/19 02/03/19 07:00 07:01 08:00 Temperature 98.1 F Pulse Rate 106 H 107 H 111 H Pulse Rate [ From Monitor] Respiratory 24 11 L Rate Blood Pressure 136/91 156/92 O2 Sat by Pulse 98 97 Oximetry 02/03/19 02/03/19 02/03/19 08:28 09:00 10:00 Temperature Pulse Rate 111 H 107 H Pulse Rate [ From Monitor] Respiratory 19 22 Rate Blood Pressure 161/93 140/83 O2 Sat by Pulse 97 95 97 Oximetry - Labs CBC & Chem 7: 02/04/19 04:17 02/04/19 04:17 Labs: Abnormal lab results 02/02/19 02/02/19 02/03/19 Range/Units 17:30 17:30 06:41 WBC 11.6 H (4.5-11.0) K/mm3 RBC 2.53 L 3.26 L (3.65-5.03) M/mm3 Hgb 7.8 L 10.1 L (11.8-15.2) gm/dl Hct 23.8 L 30.1 L D (35.5-45.6) % Lymph % (Auto) 12.5 L (13.4-35.0) % [place] % (Auto) 9.9 H (0.0-7.3) % Lymph # 1.0 L (1.2-5.4) K/mm3 Seg Neutrophils % 77.1 H (40.0-70.0) % Seg Neuts % (Manual) 84.0 H (40.0-70.0) % Lymphocytes % (Manual) 12.0 L (13.4-35.0) % Seg Neutrophils # Man 9.7 H (1.8-7.7) K/mm3 Sodium (137-145) mmol/L Potassium 5.1 H (3.6-5.0) mmol/L Chloride 108.5 H (98-107) mmol/L Carbon Dioxide 16 L (22-30) mmol/L BUN 49 H (9-20) mg/dL Creatinine 1.9 H (0.8-1.5) mg/dL Glucose 108 H (75-100) mg/dL Calcium > 13.0 H* (8.4-10.2) mg/dL AST 203 H (5-40) units/L ALT 59 H (7-56) units/L Alkaline Phosphatase 334 H (35-129) units/L Albumin 3.8 L (3.9-5) g/dL 02/03/19 Range/Units 06:41 WBC (4.5-11.0) K/mm3 RBC (3.65-5.03) M/mm3 Hgb (11.8-15.2) gm/dl Hct (35.5-45.6) % Lymph % (Auto) (13.4-35.0) % [place] % (Auto) (0.0-7.3) % Lymph # (1.2-5.4) K/mm3 Seg Neutrophils % (40.0-70.0) % Seg Neuts % (Manual) (40.0-70.0) % Lymphocytes % (Manual) (13.4-35.0) % Seg Neutrophils # Man (1.8-7.7) K/mm3 Sodium 147 H (137-145) mmol/L Potassium (3.6-5.0) mmol/L Chloride 112.9 H (98-107) mmol/L Carbon Dioxide 17 L (22-30) mmol/L BUN 44 H (9-20) mg/dL Creatinine 2.0 H (0.8-1.5) mg/dL Glucose 105 H (75-100) mg/dL Calcium 12.5 H* (8.4-10.2) mg/dL AST 165 H (5-40) units/L ALT (7-56) units/L Alkaline Phosphatase 292 H (35-129) units/L Albumin 3.3 L (3.9-5) g/dL
--- NOTE | 2019-02-03 10:46 | Consultation ---
REASON FOR CONSULTATION: 10% left pneumothorax post-lung biopsy. HISTORY OF PRESENT ILLNESS: The patient is a 58-year-old gentleman who has a suspicious left upper lobe lung mass. It appears that he had a lung biopsy done last week at [facility]. At this time, he is seen here in the Emergency Room where a chest x-ray reveals 10% left apical pneumothorax. The patient is apparently asymptomatic from this. I have been consulted just to be alert in case a Heimlich tube needs to be inserted. On reviewing the patient is awake, alert, cooperative, in no acute distress. No respiratory distress and no shortness of breath. No tachypnea. Excellent color and good O2 saturation. I have reviewed the chest x-ray with the radiologist and again there is a small, possibly 10% or less apical pneumothorax at this time. The patient is surgically stable and there does not appear to be a reason to insert a Heimlich tube at this time, though I did tell the nurse to leave one by bedside in case it is needed, it is urgently needed in the future, although I doubt that since this biopsy was done approximately a week ago. We would recommend to consult Pulmonary if necessary at this point. Also IR evaluation for possible repeat CT-guided lung biopsy in the near future as the one done previously was inconclusive and we would recommend to hold off on any biopsies at present until the pneumothorax is completely resolved. We will follow sergio JOB# [id number] MAIDA/DIANE
[2019-02-03] MEDS: SODIUM BICARBONATE 75 MEQ in /WATER, STERILE 1,000 SYR IV SCH ×2 (12:30→21:39)
[2019-02-03] MEDS: FUROSEMIDE 20 MG/2 ML INJ IV SCH ×2 (12:33→17:46)
[2019-02-03] MEDS: oxyCODONE /ACETAMINOPHEN 5-325MG TAB PO PRN ×2 (13:17→20:02)
[2019-02-03 20:07] LABS: Bilirubin,Urine NEG (Negative); Blood,Urine NEG (Negative); Color,Urine Colorless (Yellow); Mucus,Urine FEW /HPF; Protein,Urine <15 mg/dL mg/dL (Negative); RBC,Urine < 1.0 /HPF (0.0-6.0); Urobilinogen,Urine < 2.0 mg/dL (<2.0)
[2019-02-03 20:16] LABS: Creatinine,Urine 20.9 mg/dL (0.1-20.0)
[2019-02-04] MEDS: MORPHINE 2 MG/1 ML INJ IV PRN ×2 (03:17→10:42)
[2019-02-04 05:19] LABS: Basophils % (Auto) 0.2 % (0.0-1.8); Eosinophils % (Auto) 0.4 % (0.0-4.3); Hematocrit 29.6 % (35.5-45.6); Lymphocytes # (Auto) 1.6 K/mm3 (1.2-5.4); Lymphocytes % (Auto) 17.3 % (13.4-35.0); Mean Corpuscular HGB Conc 34 % (32-34); Mean Corpuscular Volume 92 fl (84-94); Monocytes # (Auto) 0.9 K/mm3 (0.0-0.8); Platelet Count 315 K/mm3 (140-440); Red Blood Count 3.23 M/mm3 (3.65-5.03); Red Cell Distribution Width 14.1 % (13.2-15.2)
[2019-02-04 05:28] LABS: Calcium 10.5 mg/dL (8.4-10.2)
[2019-02-04] MEDS: oxyCODONE /ACETAMINOPHEN 5-325MG TAB PO PRN ×2 (07:04→15:46)
[2019-02-04] MEDS: FUROSEMIDE 20 MG/2 ML INJ IV SCH ×2 (07:04→18:05)
[2019-02-04] MEDS ORDERED: SODIUM BICARBONATE 75 MEQ in WATER FOR INJECTION (PF) 1,000 ML IV SCH (08:00)
--- NOTE | 2019-02-04 08:36 | Ultrasound Report ---
ULTRASOUND RENAL INDICATION / CLINICAL INFORMATION: Acute renal failure.. COMPARISON: None available. FINDINGS: RIGHT KIDNEY: Length = 11.1 cm. [normal > 9 cm] - Parenchymal Thickness = 1.6 cm. [normal > 1.5 cm] - Echogenicity: Increased - Hydronephrosis: None. - Cyst or mass: No significant abnormality. - Stones: None seen. LEFT KIDNEY: Length = 11.3 cm. [normal > 9 cm] - Parenchymal Thickness = 1.8 cm. [normal > 1.5 cm] - Echogenicity: Increased - Hydronephrosis: None. - Cyst or mass: There are a few subcentimeter simple cysts scattered throughout the left kidney. - Stones: None seen. URINARY BLADDER: No significant abnormality. FREE FLUID: None. ADDITIONAL FINDINGS: None. IMPRESSION: Normal size but echogenic kidneys consistent with nonspecific renal parenchymal disease or acute niru al failure. Obstructive uropathy. Tiny simple left renal cysts. Signer Name: Lobito Bower Jr, MD Signed: 02/04/2019 8:31 AM Workstation Name: [id number]
--- NOTE | 2019-02-04 09:14 | Progress Note ---
Assessment and Plan 1. Severe hypercalcemia: Initial calcium was 17.2 at [facility]. Likely related to Malignancy. PTH level was low. PTH related peptide is pending. S/p Pamidronate. Calcium level is gradually improving. Continue IV fluids. Monitor. 2. Acute kidney injury: UA is bland. Renal US suggestive of CKD. Baseline renal function is unknown. Likely baseline CKD. Monitor renal function. Avoid nephrotoxic agents. Meds dosage based on GFR. 3. FEN: Hyperkalemia, improved. Hypernatremia, improved. Metabolic acidosis, improved. 4. Lung mass. 5. Elevated transaminases: Improving. 6. SIRS. 7. Hypertension. 8. Normocytic anemia: POA. 9. Tobacco use: Counseled. F/u with me in 1 week. D/w pt and his . Examination: General appearance: well-developed, appears stated age, no distress HEENT: ATNC, [place], hearing intact, vision intact Neck: neck supple, trachea midline Respiratory: Clear to Ascultation Heart: regular, S1S2, no murmurs Gastrointestinal: normoactive bowel sounds, not tender, not distended Integumentary: no rash, warm and dry Neurologic: no focal deficit, no asterixis, alert and oriented x3 Ext: no edema Subjective Date of service: 02/04/19 Interval history: Patient was seen and examined at the bedside. Objective - Vital Signs Vital signs: Vital Signs - 12hr 02/03/19 02/03/19 02/03/19 22:00 23:00 23:44 Temperature 98.0 F Pulse Rate 103 H 101 H Pulse Rate [ From Monitor] Respiratory 19 21 Rate Blood Pressure 152/95 158/88 O2 Sat by Pulse 97 97 Oximetry 02/04/19 02/04/19 02/04/19 00:00 01:00 02:00 Temperature Pulse Rate 98 H 97 H 96 H Pulse Rate [ 100 H From Monitor] Respiratory 23 22 23 Rate Blood Pressure 144/81 135/87 135/87 O2 Sat by Pulse 96 95 95 Oximetry 02/04/19 02/04/19 02/04/19 03:00 04:00 04:33 Temperature 98.9 F Pulse Rate 66 94 H Pulse Rate [ 89 From Monitor] Respiratory 24 23 Rate Blood Pressure 135/87 146/83 O2 Sat by Pulse 95 95 Oximetry 1102/04/19 02/04/19 05:00 06:00 07:00 Temperature Pulse Rate 97 H 105 H 109 H Pulse Rate [ From Monitor] Respiratory 21 20 20 Rate Blood Pressure 134/95 150/94 143/91 O2 Sat by Pulse 94 95 96 Oximetry 02/04/19 08:00 Temperature 97.6 F Pulse Rate 109 H Pulse Rate [ From Monitor] Respiratory 22 Rate Blood Pressure 151/95 O2 Sat by Pulse 96 Oximetry - Lab 02/04/19 04:17 02/04/19 04:17 Most recent lab results Calcium 10.5 mg/dL (8.4-10.2) H D 02/04/19 04:17 Phosphorus 2.30 mg/dL (2.5-4.5) L 02/04/19 04:17 Magnesium 1.10 mg/dL (1.7-2.3) L 02/04/19 04:17 Urine Creatinine 20.9 mg/dL (0.1-20.0) H 02/03/19 19:54 Urine Sodium 108 mmol/L 02/03/19 19:54 Medications & Allergies - Medications Allergies/Adverse Reactions: Allergies No Known Allergies Allergy (Unverified 02/02/19 13:48) Home Medications: Home Medications Medication Instructions Recorded Confirmed Last Taken Type Allopurinol [Zyloprim] 100 mg PO QDAY 02/02/19 02/03/19 Unknown History cloNIDine [Catapres] 0.2 mg PO DAILY 02/02/19 02/02/19 Unknown History fentaNYL [Fentanyl] 1 each TD QDAY 02/02/19 02/03/19 Unknown History ALBUTEROL Inhaler (OR & NICU) 2 puff IH QID PRN #8.5 gram 02/04/19 Unknown Rx [ProAir HFA Inhaler] Active Medications: Generic Name Dose Route Start Last Admin Trade Name Freq PRN Reason Stop Dose Admin Acetaminophen 650 mg 02/02/19 19:39 02/02/19 23:35 Tylenol PO 650 mg Q4H PRN Administration Pain MILD(1-3)/Fever >100.5/CLEMENTS Albuterol 2.5 mg 02/02/19 19:39 Proventil IH Q4HRT PRN Shortness Of Breath Furosemide 20 mg 02/03/19 10:00 02/04/19 07:04 Lasix IV 20 mg 0600,1800 MURIEL Administration Levofloxacin/Dextrose 250 mg in 50 mls @ 50 mls/hr 02/03/19 22:00 02/03/19 23:19 Levaquin 250mg/50ml IV Infused Q24H MURIEL Infusion Protocol Sodium Bicarbonate 75 meq/ 1,075 mls @ 125 mls/hr 02/04/19 08:00 Sterile Water IV DIRECT MURIEL Morphine Sulfate 2 mg 02/02/19 21:19 02/04/19 03:17 Morphine IV 2 mg Q4H PRN Administration Pain, Moderate (4-6) Ondansetron HCl 4 mg 02/02/19 19:39 02/03/19 17:48 Zofran IV 4 mg Q8H PRN Administration Nausea And Vomiting Oxycodone/Acetaminophen 1 tab 02/02/19 21:19 02/04/19 07:04 Percocet 5/325 PO 1 tab Q6H PRN Administration Pain, Moderate (4-6) Sodium Chloride 10 ml 02/02/19 22:00 02/03/19 21:39 Sodium Chloride Flush Syringe 10 Ml IV 10 ml BID MURIEL Administration Sodium Chloride 10 ml 02/02/19 19:39 02/03/19 17:48 Sodium Chloride Flush Syringe 10 Ml IV 10 ml PRN PRN Administration LINE FLUSH
[2019-02-04] MEDS ORDERED: SODIUM PHOSPHATE IV ONE (09:15)
[2019-02-04] MEDS ORDERED: STERILE IV ONE (09:15)
[2019-02-04] MEDS ORDERED: WATER IV ONE (09:15)
[2019-02-04] MEDS ORDERED: SODIUM PHOSPHATE 30 MMOL in SODIUM CHLORIDE 0.45% 500 ML IV ONE (10:00)
[2019-02-04] MEDS ORDERED: MAGNESIUM SULFATE 4 GM/100 ML BAG IV ONE (10:00)
--- NOTE | 2019-02-04 16:20 | Discharge Summary ---
Providers - Providers Date of Admission: 02/02/19 19:40 Date of discharge: 02/04/19 Attending physician: AYESHA IVY 02/02/19 20:30 Consult to Interventional Radiology [CONS] Routine Consulting Provider: QUIRINO RADFORD Reason For Exam: Lung biopsy 02/02/19 21:44 Consult to Physician [CONS] Routine Comment: Dr. Patton spoke with Dr. Vera @ 2115 Consulting Provider: MATT VERA Physician Instructions: Reason For Exam: Pneumothorax 10% 02/03/19 09:10 Consult to Physician [CONS] Routine Comment: Consulting Provider: ANDREA MOREJON Physician Instructions: Reason For Exam: MIGEL hypercalcemia Primary care physician: ECONOMIC SPECIALIST Hospitalization Condition: Fair Pertinent studies: Renal ultrasound, chest x-ray, shoulder x-ray Hospital course: 58 YO Male with STEFANO Lung Mass suspicious for Lung Cancer S/P lung biopsy that was inconclusive, Malnutrition, Nicotine Dependence presents to ED for progressive weakness, malaise, and fatigue over the past 1 month with worsening symptoms over the past 2 weeks. Pt seen and evaluated in ED and found to have STEFANO Lung Mass, 10% Pneumothorax, SIRS, Acidosis, Anemia and MIGEL. Pt admitted to IMCU and treated with IV antibiotic therapy, as well as pain control and IVF resuscitation therapy. Interventional Radiology consulted in ED for possible b iopsy. Interventional radiology evaluated the patient but recommended that Patient may be discharged for follow-up in approximately 1 week for lung biopsy at that time and will need a diagnostic CT scan of the chest with IV contrast however, his presented with MIGEL and pneumothorax. Patient was medically stabilized and discharge home in stable condition and recommended to follow-up with the pulmonology and interventional radiology to schedule his biopsy in a week. Discharge diagnosis: / SIRS (systemic inflammatory response syndrome) due to underlying malignancy / Pneumothorax of left lung after biopsy, spontaneously resolved / Lung cancer, need for another CT-guided biopsy - will be done as outpatient / MIGEL (acute kidney injury), with vasomotor nephropathy - We'll do further follow-up as an outpatient / Hypercalcemia of malignancy, resolved s/p Calcitonin in ED, also given IV fluid and Lasix /Hypophosphatemia and hypomagnesemia / Anemia of chronic disease - H&H stable Disposition: - TO HOME OR SELFCARE Time spent for discharge: 34 minutes Core Measure Documentation - Palliative Care Palliative Care/ Comfort Measures: Not Applicable - Core Measures Any of the following diagnoses?: none Exam - Constitutional Vitals: Temp Pulse Resp BP Pulse Ox 97.6 F 109 H 22 151/95 96 02/04/19 08:00 02/04/19 08:00 02/04/19 08:00 02/04/19 08:00 02/04/19 08:00 General appearance: Present: no acute distress - EENT Eyes: Present: PERRL ENT: hearing intact, clear oral mucosa - Neck Neck: Present: supple, normal ROM - Respiratory Respiratory effort: normal Respiratory: bilateral: CTA - Cardiovascular Heart Sounds: Present: S1 & S2. Absent: rub, click - Extremities Extremities: pulses symmetrical, No edema Peripheral Pulses: within normal limits - Abdominal General gastrointestinal: Present: soft, non-tender, non-distended, normal bowel sounds - Integumentary Integumentary: Present: clear, warm, dry - Musculoskeletal Musculoskeletal: gait normal, strength equal bilaterally - Psychiatric Psychiatric: appropriate mood/affect, intact judgment & insight - Neurologic Neurologic: CNII-XII intact, moves all extremities Plan Activity: advance as tolerated Weight Bearing Status: Non-Weight Bearing Diet: regular Additional Instructions: Repeat BMP by next week Follow up with: PRIMARY CARE, [Primary Care Provider] - 3-5 Days LIANE SCHULTZ MD [Staff Physician] - 7 Days DUYEN PRESCOTT MD [Staff Physician] - 7 Days STACIE ARCOS MD [Staff Physician] - 7 Days ANDREA MOREJON MD [Staff Physician] - 7 Days Prescriptions: ALBUTEROL Inhaler (OR & NICU) [ProAir HFA Inhaler] 2 puff IH QID PRN #8.5 gram PRN Reason: Shortness Of Breath
[2019-02-04 16:37] VITALS: BP 156/92
== END 2019-02-04 17:30 | disposition home or self-care (01) | DRG 199 ==
LOC: ED 13:42 → 3A 19:40 → IMCU 21:20
PROVIDERS: ADMIT Internal Medicine; ATTEND Internal Medicine
DX: J93.83 Other pneumothorax (principal); N17.0 Acute kidney failure with tubular necrosis; E87.2 Acidosis; R65.10 Systemic inflammatory response syndrome (SIRS) of non-infectious origin without acute organ dysfunction; E87.0 Hyperosmolality and hypernatremia; E46 Unspecified protein-calorie malnutrition; C34.12 Malignant neoplasm of upper lobe, left bronchus or lung; I10 Essential (primary) hypertension; E87.5 Hyperkalemia; D63.8 Anemia in other chronic diseases classified elsewhere; E83.52 Hypercalcemia; R74.0 Nonspecific elevation of levels of transaminase and lactic acid dehydrogenase [LDH]; F17.200 Nicotine dependence, unspecified, uncomplicated; Z71.6 Tobacco abuse counseling; Z68.21 Body mass index [BMI] 21.0-21.9, adult; Z79.899 Other long term (current) drug therapy
CPT/HCPCS: 36415; 71045; 71046; 76770; 80048; 80053; 81001; 82140; 82330; 82570; 83735; 84100; 84300; 84484; 85007; 85025; 87040; 93005; 93010; 96365; G0378; J0630; J1170; J1940; J1956; J2270; J2405; J3475; J7030; J7040

== ENCOUNTER 2019-02-15 12:42 | Inpatient (IN) | payer BC ==
--- NOTE | 2019-02-15 13:49 | Event Note ---
Date: 02/15/19 Lung biopsies are usually performed by diagnostic radiology. Please contact and coordinate with diagnostic radiology for lung biopsy. Patient will need to be made NPO after MN except meds and order of CT biopsy lung, LT will need to be placed for diagnostic radiology. If the request is for port placement then vascular/IR can evaluate the patient for port.
[2019-02-15 14:04] LABS: INR 1.21 (0.87-1.13)
[2019-02-15 14:05] LABS: Partial Thromboplastin Time 34.9 Sec. (24.2-36.6)
[2019-02-15 14:07] LABS: Hematocrit 26.4 % (35.5-45.6); Hemoglobin 8.6 gm/dl (11.8-15.2); Mean Corpuscular HGB Conc 33 % (32-34); Mean Corpuscular Volume 90 fl (84-94); Platelet Count 582 K/mm3 (140-440); Red Blood Count 2.93 M/mm3 (3.65-5.03)
[2019-02-15 14:22] LABS: Alanine Aminotransferase 70 units/L (7-56); Albumin 3.4 g/dL (3.9-5); BUN/Creatinine Ratio 19; Blood Urea Nitrogen 17 mg/dL (9-20); Calcium 9.7 mg/dL (8.4-10.2); Hemolysis Index 0
[2019-02-15 15:08] LABS: Basophils % (Manual) 0 % (0.0-1.8); Eosinophils % (Manual) 0 % (0.0-4.3); Total Cells Counted 100
[2019-02-15 15:09] LABS: RBC Morphology Normal
[2019-02-15] MEDS ORDERED: FLU VACC QUAD 2019-20 (3 YR UP)/PF 60 MCG/0.5 ML SYRINGE IM ONE (17:12)
[2019-02-15] MEDS ORDERED: PNEUMOCOCCAL 23 Valent 0.5 ML VIAL IM ONE (17:12)
--- NOTE | 2019-02-15 18:32 | Consultation ---
History of Present Illness - Reason for Consult Consult date: 02/15/19 Hypertension Requesting physician: STACIE FREITAS - History of Present Illness 58 YO Male with STEFANO Lung Mass suspicious for Lung Cancer S/P lung biopsy that was inconclusive, Malnutrition, Nicotine Dependence. Consult placed by Dr. Freitas for HTN. Pt seen and evaluated upon arrival to his room. Pt denies fever, chills, CP, Palpitations, Trauma, or recent ill contacts. No reported nursing events. Past History Past Medical History: other (see hpi) Past Surgical History: Other (Lung biopsy) Social history: , lives with family Family history: no significant family history (reviewed) Medications and Allergies Allergies Allergy/AdvReac Type Severity Reaction Status Date / Time No Known Allergies Allergy Unverified 02/02/19 13:48 Home Medications Medication Instructions Recorded Confirmed Last Taken Type Allopurinol [Zyloprim] 100 mg PO QDAY 02/02/19 02/03/19 1 Day Ago History ~02/14/19 cloNIDine [Catapres] 0.2 mg PO DAILY 02/02/19 02/02/19 1 Day Ago History ~02/14/19 fentaNYL [Fentanyl] 50 mcg TD Q72HR 02/02/19 02/03/19 1 Day Ago History ~02/14/19 ALBUTEROL Inhaler (OR & NICU) 2 puff IH QID PRN #8.5 gram 02/04/19 Unknown Rx [ProAir HFA Inhaler] Megestrol 40 mg PO BID 02/15/19 02/15/19 02/15/19 09:00 History Zofran ODT TAB 4 mg PO BID 02/15/19 02/15/19 Unknown History oxyCODONE /ACETAMINOPHEN [Percocet 10 mg PO Q6HR PRN 02/15/19 02/15/19 Unknown History 5/325] Active Meds: Active Medications Allopurinol (Zyloprim) 100 mg PO QDAY MURIEL Sodium Chloride (Nacl 0.9% 1000 Ml) 1,000 mls @ 75 mls/hr IV DIRECT MURIEL Ondansetron HCl (Zofran) 4 mg IV Q8H PRN PRN Reason: Nausea And Vomiting Oxycodone/Acetaminophen (Percocet 5/325) 2 tab PO Q8H PRN PRN Reason: Pain, Moderate (4-6) Sodium Chloride (Sodium Chloride Flush Syringe 10 Ml) 10 ml IV BID MURIEL Sodium Chloride (Sodium Chloride Flush Syringe 10 Ml) 10 ml IV PRN PRN PRN Reason: LINE FLUSH Review of Systems Constitutional: no fever, no chills Ears, nose, mouth and throat: no ear pain, no ear discharge, no tinnitis, no decreased hearing, no nose pain, no nasal congestion Cardiovascular: no chest pain, no orthopnea, no palpitations, no rapid/irregular heart beat Respiratory: no cough, no cough with sputum, no shortness of breath Gastrointestinal: no abdominal pain, no nausea, no vomiting, no diarrhea, no constipation Genitourinary Male: no hematuria, no flank pain, no discharge, no urinary frequency, no urinary hesitancy Rectal: no pain, no incontinence, no bleeding Musculoskeletal: no neck stiffness, no neck pain, no shooting arm pain, no arm numbness/tingling Integumentary: no rash, no redness, no sores, no wounds, no jaundice, no boils Neurological: no head injury, no paralysis, no parathesias, no numbness, no seizures Psychiatric: no anxiety, no insomnia, no change in appetite, no suicidal ideation Endocrine: no heat intolerance, no excessive thirst, no polyuria, no nocturia Hematologic/Lymphatic: no easy bruising, no easy bleeding, no lymphadenopathy, no lymphedema Exam - Constitutional Vitals: Temp Pulse Resp BP Pulse Ox 98.5 F 121 H 22 129/82 94 02/15/19 17:15 02/15/19 17:15 02/15/19 17:15 02/15/19 17:15 02/15/19 17:15 General appearance: Present: mild distress, cachectic - EENT Eyes: Present: PERRL ENT: hearing intact, clear oral mucosa - Neck Neck: Present: supple, normal ROM - Respiratory Respiratory effort: normal Respiratory: bilateral: CTA - Cardiovascular Heart Sounds: Present: S1 & S2. Absent: rub, click - Extremities Extremities: pulses symmetrical, No edema Peripheral Pulses: within normal limits - Abdominal General gastrointestinal: Present: soft, non-tender, non-distended, normal bowel sounds Male genitourinary: Present: normal - Integumentary Integumentary: Present: clear, warm, dry - Musculoskeletal Musculoskeletal: gait normal, strength equal bilaterally - Psychiatric Psychiatric: appropriate mood/affect, intact judgment & insight - Neurologic Neurologic: CNII-XII intact, moves all extremities Results - Labs CBC & Chem 7: 02/15/19 13:43 02/15/19 13:43 Labs: Abnormal lab results 02/15/19 02/15/19 02/15/19 Range/Units 13:43 13:43 13:43 WBC 12.6 H (4.5-11.0) K/mm3 RBC 2.93 L (3.65-5.03) M/mm3 Hgb 8.6 L (11.8-15.2) gm/dl Hct 26.4 L (35.5-45.6) % Plt Count 582 H (140-440) K/mm3 Seg Neuts % (Manual) 86.0 H (40.0-70.0) % Lymphocytes % (Manual) 9.0 L (13.4-35.0) % Seg Neutrophils # Man 10.8 H (1.8-7.7) K/mm3 Lymphocytes # (Manual) 1.1 L (1.2-5.4) K/mm3 PT 15.2 H (12.2-14.9) Sec. INR 1.21 H (0.87-1.13) Potassium 5.4 H (3.6-5.0) mmol/L Chloride 107.2 H (98-107) mmol/L Carbon Dioxide 16 L (22-30) mmol/L AST 151 H (5-40) units/L ALT 70 H (7-56) units/L Alkaline Phosphatase 1038 H (35-129) units/L Albumin 3.4 L (3.9-5) g/dL Assessment and Plan - Patient Problems (1) HTN (hypertension) Current Visit: Yes Status: Acute Qualifiers: Hypertension type: unspecified Qualified Code(s): I10 - Essential (primary) hypertension Plan to address problem: Monitor BP q shift. Pt normotensive at time of evaluation. IV hydralazine for SBP greater than 155.
[2019-02-15] MEDS: oxyCODONE /ACETAMINOPHEN 5-325MG TAB PO PRN (18:44)
[2019-02-15] MEDS: allopurinoL 100 MG TAB PO SCH (18:45)
--- NOTE | 2019-02-15 22:41 | XRay Report ---
CHEST 1 VIEW INDICATION: post lung bx. COMPARISON: 02/02/2019. FINDINGS: Support devices: None. Heart: Within normal limits. Lungs/Pleura: Stable left hilar enlargement and adjacent lung nodule. No pneumothorax. Additional findings: None. IMPRESSION: No pneumothorax status post lung biopsy. Signer Name: Giovanni Gandara MD Signed: 02/15/2019 10:36 PM Workstation Name: [id number]
[2019-02-16] MEDS: oxyCODONE /ACETAMINOPHEN 5-325MG TAB PO PRN ×2 (03:11→18:44)
--- NOTE | 2019-02-16 07:51 | History and Physical Report ---
History of Present Illness Date of examination: 02/16/19 Date of admission: 02/15/19 13:23 Chief complaint: back pain History of present illness: Past History Past Medical History: other (see hpi) Past Surgical History: Other (Lung biopsy) Social history: , lives with family Family history: no significant family history (reviewed) Medications and Allergies Allergies Allergy/AdvReac Type Severity Reaction Status Date / Time No Known Allergies Allergy Unverified 02/02/19 13:48 Home Medications Medication Instructions Recorded Confirmed Last Taken Type Allopurinol [Zyloprim] 100 mg PO QDAY 02/02/19 02/16/19 1 Day Ago History ~02/14/19 cloNIDine [Catapres] 0.2 mg PO DAILY 02/02/19 02/16/19 1 Day Ago History ~02/14/19 fentaNYL [Fentanyl] 50 mcg TD Q72HR 02/02/19 02/16/19 1 Day Ago History ~02/14/19 ALBUTEROL Inhaler (OR & NICU) 2 puff IH QID PRN #8.5 gram 02/04/19 02/16/19 Unknown Rx [ProAir HFA Inhaler] Megestrol 40 mg PO BID 02/15/19 02/15/19 02/15/19 09:00 History Zofran ODT TAB 4 mg PO BID 02/15/19 02/15/19 Unknown History oxyCODONE /ACETAMINOPHEN [Percocet 10 mg PO Q6HR PRN 02/15/19 02/15/19 Unknown History 5/325] Active Meds: Active Medications Allopurinol (Zyloprim) 100 mg PO QDAY MURIEL Last Admin: 02/15/19 18:45 Dose: 100 mg Documented by: Hydralazine HCl (Apresoline) 5 mg IV Q6HR PRN PRN Reason: Hypertension Sodium Chloride (Nacl 0.9% 1000 Ml) 1,000 mls @ 75 mls/hr IV DIRECT MURIEL Ondansetron HCl (Zofran) 4 mg IV Q8H PRN PRN Reason: Nausea And Vomiting Oxycodone/Acetaminophen (Percocet 5/325) 2 tab PO Q8H PRN PRN Reason: Pain, Moderate (4-6) Last Admin: 02/16/19 03:11 Dose: 2 tab Documented by: Sodium Chloride (Sodium Chloride Flush Syringe 10 Ml) 10 ml IV BID MURIEL Last Admin: 02/16/19 02:16 Dose: Not Given Documented by: Sodium Chloride (Sodium Chloride Flush Syringe 10 Ml) 10 ml IV PRN PRN PRN Reason: LINE FLUSH Exam - Constitutional Vitals: Temp Pulse Resp BP Pulse Ox 98.5 F 119 H 18 139/87 96 02/16/19 04:18 02/16/19 04:18 02/16/19 04:18 02/16/19 04:18 02/16/19 04:18 Results - Labs CBC & Chem 7: 02/15/19 13:43 02/15/19 13:43 Labs: Abnormal lab results 02/15/19 02/15/19 02/15/19 Range/Units 13:43 13:43 13:43 WBC 12.6 H (4.5-11.0) K/mm3 RBC 2.93 L (3.65-5.03) M/mm3 Hgb 8.6 L (11.8-15.2) gm/dl Hct 26.4 L (35.5-45.6) % Plt Count 582 H (140-440) K/mm3 Seg Neuts % (Manual) 86.0 H (40.0-70.0) % Lymphocytes % (Manual) 9.0 L (13.4-35.0) % Seg Neutrophils # Man 10.8 H (1.8-7.7) K/mm3 Lymphocytes # (Manual) 1.1 L (1.2-5.4) K/mm3 PT 15.2 H (12.2-14.9) Sec. INR 1.21 H (0.87-1.13) Potassium 5.4 H (3.6-5.0) mmol/L Chloride 107.2 H (98-107) mmol/L Carbon Dioxide 16 L (22-30) mmol/L AST 151 H (5-40) units/L ALT 70 H (7-56) units/L Alkaline Phosphatase 1038 H (35-129) units/L Albumin 3.4 L (3.9-5) g/dL
[2019-02-16] MEDS ORDERED: LORazepam 2 MG/ML VIAL IV NR (08:22)
[2019-02-16] MEDS: SODIUM CHLORIDE 0.9% 1000 ML 1,000 ML IV SCH (08:39)
--- NOTE | 2019-02-16 08:51 | History and Physical Report ---
REASON FOR ADMISSION: Suspected lung cancer, history of hypercalcemia, history of renal impairment. HISTORY OF PRESENT ILLNESS: The patient's and the patient were seen in the clinic yesterday and he was admitted directly. Since June, the patient has been unwell. In December, he went to [facility]. He was found to have left upper lobe lesion and hilar lesions in the chest. The patient saw Dr. Kristyn Reyes at [place], primary care and then Dr. Reardon, Pulmonary at [place]. Later, they saw Dr. Fountain, oncologist. MRI back was done, details of this are not available and later, biopsy was done. This was inconclusive. The patient was sent to [facility]. He was there for a few days and then later went to [facility]. His calcium was very high at that time. Calcitonin was given. Calcium was 13, creatinine was 2. At [facility], he was found to have a pneumothorax post-previous biopsy and hence, repeat biopsy was not done. The patient came to the clinic and it was a direct admission. He was anemic. He was having pain issues. He has been struggling for the last 4-6 weeks to get a tissue diagnosis. PAST MEDICAL HISTORY: Diabetes, asthma, history of pain medication usage for back pain for 6 years, history of hypertension. SOCIAL HISTORY: Former smoker. FAMILY HISTORY: Hypertension, diabetes, and brain tumor. PHYSICAL EXAMINATION: VITAL SIGNS: Temperature 98, pulse 119, respirations 18, BP 139/87. HEENT: Mild pallor, no icterus. NECK: No neck lymph nodes. HEART: S1, S2. LUNGS: Clear to auscultation. ABDOMEN: Soft. EXTREMITIES: No calf tenderness. LABORATORY DATA: White cell 12, hemoglobin 8.6, MCV 90, platelets 582. INR 1.2, PTT 34, potassium 5.4, creatinine 0.9, bilirubin 0.5, AST 151, ALT 70, alkaline phosphatase 1038. ASSESSMENT AND PLAN: 1. Previously, the patient was found to have a left lung lesion and hilar mass. Biopsy was inconclusive. Repeat biopsy was planned. 2. History of hypercalcemia. Calcitonin was given. Calcium was 13. 3. Anemia. MCV is normal. I spoke to hospitalist team. I spoke to the Interventional Radiology team. CT chest, abdomen and pelvis with only oral contrast will be done as creatinine was higher in the past and now it has improved. We will look into biopsy, today is a holiday. If we are not able to stabilize him and achieve the biopsy, outpatient scheduling for same will be looked into. The patient had CT scan on 01/09/2019 at [facility], which showed left upper lobe pulmonary nodule with irregular borders and left hilar lymphadenopathy. Both findings raised concern for primary bronchogenic malignancy. 4. Abnormal liver function tests. 5. Pain issues. The patient has been on pain medications for a few years. I will follow the patient during inpatient stay. JOB# [id number] SHILO/DIANE
[2019-02-16 09:41] LABS: Iron 30 ug/dL (49-181); Total Iron Binding Capacity 160 mcg/dL (250-450)
--- NOTE | 2019-02-16 10:12 | XRay Report ---
CHEST 2 VIEWS INDICATION: HX. PNEUMOTHRAX, LUNG CA. COMPARISON: 02/02/2019 FINDINGS: Support devices: None. Heart: Within normal limits. Pulmonary vasculature: Normal. Lungs/pleura: Stable left upper lobe lung nodule and left suprahilar lymphadenopathy. No pneumothora x. Additional findings: None. IMPRESSION: 1. Resolution of left pneumothorax. 2. Left upper lobe lung mass and left suprahilar lymphadenopathy. Signer Name: Gabriel Godoy MD Signed: 02/16/2019 10:08 AM Workstation Name: [id number]
--- NOTE | 2019-02-16 11:32 | Cat Scan Report ---
CT abdomen pelvis wo con, CT chest wo con INDICATION: Lung nodule and possible hilar adenopathy. TECHNIQUE: All CT scans at this location are performed using the following dose modulation technique: Automated exposure control. Helical slices were obtained through the chest, abdomen, and pelvis. No intravenous contrast is administered. Oral contrast was administered. COMPARISON: None available. FINDINGS: Chest: There is a 2.5 cm nodule in the left upper lobe, series 4 image 25. There is a 7 mm nodular de nsity in the left upper lobe, series 4 image 28. There are scattered parenchymal densities appear to be some solid in the right upper and right lower lobe these measure less than a centimeter. There is a 4.1 x 2.5 cm left hilar mass. Prominent mediastinal nodes are increased in number. Subcari nal node measures 1.5 cm in short axis. ABDOMEN: There are numerous hypodensities in the liver characteristic of hepatic metastatic disease. The spleen, pancreas, adrenal glands, and small bowel unremarkable. There are small retroperitoneal n odes which are not significantly enlarged but are increased in number. The aorta is normal in diameter. There are several hypodensities noted in both kidneys which appear to represent cysts. Pelvis: There is very small amount of free fluid in the dependent portion of the pelvis. There is no inflammatory change. There are small iliac chain nodes bilaterally. On review of bone windows there is cortical irregularity in the right and left ischio greater on the right left. Right ischium has a somewhat moth-eaten appearance. IMPRESSION: 1. There is a 2.5 cm nodule in the left upper lobe the lung. There is a left hilar mass. Both these f indings are consistent with neoplasm. There are several small subsolid nodular densities in both lung s greater on the right and left. 2. There are numerous small hypodensities in the liver characteristic of diffuse hepatic metastatic d isease. There is mild mediastinal adenopathy. There are shoddy adenopathy in the retroperitoneum along the il iac chains which is suspicious in this setting. The right and left issue an abnormal appearance with evidence of cortical destruction greater on the right and left. This is suspicious for metastatic disease. Hypodensities in the kidneys are likely cysts. Signer Name: Kareem Arellano MD Signed: 02/16/2019 11:28 AM Workstation Name: [id number]
[2019-02-16] MEDS: hydrALAZINE 20 MG/1 ML INJ IV PRN ×2 (18:43→23:24)
[2019-02-16] MEDS: allopurinoL 100 MG TAB PO SCH (18:48)
[2019-02-17] MEDS: ONDANSETRON 4 MG/2 ML INJ IV PRN ×2 (00:28→10:39)
[2019-02-17] MEDS: oxyCODONE /ACETAMINOPHEN 5-325MG TAB PO PRN ×3 (00:28→11:34)
[2019-02-17] MEDS: SODIUM CHLORIDE 0.9% 1000 ML 1,000 ML IV SCH (00:36)
[2019-02-17] MEDS: hydrALAZINE 20 MG/1 ML INJ IV PRN (06:06)
[2019-02-17 06:42] VITALS: BP 146/88
--- NOTE | 2019-02-17 10:04 | Progress Note ---
Assessment and Plan Patient will need biopsy for tissue diagnosis. CT techs are not available today or tomorrow, discussed patient's care with patient and his oncologist. The plan will be to arrange for outpatient biopsy of likely the hepatic metastatic dis ease on Thursday. Patient may be discharged home. Subjective Date of service: 02/17/19 Principal diagnosis: lung cancer with metastatic disease to the liver Interval history: Patient with a history of left upper lobe mass previously underwent attempted biopsy at [facility] without adequate to sample. The patient presented to [facility] following this attempted biopsy with a residual pneumothorax. He was subsequently discharged. Patient returned complaining of back pain and received a CT of the chest, abdomen and pelvis without contrast. This demonstrates pulmonary nodules as well as diffuse metastatic disease to the liver. Patient is resting comfortably in bed at time of examination. Objective - Constitutional Vitals: Vital Signs - 12hr 02/16/19 02/16/19 02/16/19 22:55 22:56 23:24 Temperature 98.0 F Pulse Rate 119 H 119 H Respiratory 20 Rate Blood Pressure 169/105 Blood Pressure 169/105 [Left] O2 Sat by Pulse 119 H 96 Oximetry 02/17/19 02/17/19 02/17/19 00:28 05:51 06:06 Temperature 97.7 F Pulse Rate 123 H 123 H Respiratory 18 20 Rate Blood Pressure 175/104 175/104 Blood Pressure [Left] O2 Sat by Pulse 94 Oximetry 02/17/19 06:41 Temperature Pulse Rate 96 H Respiratory Rate Blood Pressure Blood Pressure 146/88 [Left] O2 Sat by Pulse Oximetry General appearance: Present: no acute distress - EENT Eyes: EOM intact ENT: hearing intact - Neck Neck: supple, normal ROM - Respiratory Respiratory effort: normal Extremities: no ischemia - Gastrointestinal General gastrointestinal: Present: deferred Rectal Exam: deferred - Genitourinary Male genitourinary: deferred - Psychiatric Psychiatric: appropriate mood/affect, cooperative - Labs CBC & Chem 7: 02/15/19 13:43 02/15/19 13:43 Labs: Abnormal lab results 02/16/19 Range/Units 08:52 Vitamin B12 1243 H (211-911) pg/mL Medications & Allergies - Medications Allergies/Adverse Reactions: Allergies No Known Allergies Allergy (Unverified 02/02/19 13:48) Home Medications: Home Medications Medication Instructions Recorded Confirmed Last Taken Type Allopurinol [Zyloprim] 100 mg PO QDAY 02/02/19 02/16/19 1 Day Ago History ~02/14/19 cloNIDine [Catapres] 0.2 mg PO DAILY 02/02/19 02/16/19 1 Day Ago History ~02/14/19 fentaNYL [Fentanyl] 50 mcg TD Q72HR 02/02/19 02/16/19 1 Day Ago History ~02/14/19 ALBUTEROL Inhaler (OR & NICU) 2 puff IH QID PRN #8.5 gram 02/04/19 02/16/19 Unknown Rx [ProAir HFA Inhaler] Megestrol 40 mg PO BID 02/15/19 02/15/19 02/15/19 09:00 History Zofran ODT TAB 4 mg PO BID 02/15/19 02/15/19 Unknown History oxyCODONE /ACETAMINOPHEN [Percocet 10 mg PO Q6HR PRN 02/15/19 02/15/19 Unknown History 5/325] Active Medications: Generic Name Dose Route Start Last Admin Trade Name Freq PRN Reason Stop Dose Admin Allopurinol 100 mg 02/15/19 19:00 02/16/19 18:48 Zyloprim PO 100 mg QDAY MURIEL Administration Hydralazine HCl 5 mg 02/15/19 18:37 02/17/19 06:06 Apresoline IV 5 mg Q6HR PRN Administration Hypertension Sodium Chloride 1,000 mls @ 75 mls/hr 02/15/19 13:00 02/17/19 00:36 Nacl 0.9% 1000 Ml IV 75 mls/hr DIRECT MURIEL Administration Ondansetron HCl 4 mg 02/15/19 18:12 02/17/19 00:28 Zofran IV 4 mg Q8H PRN Administration Nausea And Vomiting Oxycodone/Acetaminophen 2 tab 02/16/19 08:21 02/17/19 06:06 Percocet 5/325 PO 02/18/19 23:59 2 tab Q6H PRN Administration Pain, Moderate (4-6) Sodium Chloride 10 ml 02/15/19 22:00 02/16/19 23:22 Sodium Chloride Flush Syringe 10 Ml IV 10 ml BID MURIEL Administration Sodium Chloride 10 ml 02/15/19 12:58 Sodium Chloride Flush Syringe 10 Ml IV PRN PRN LINE FLUSH
--- NOTE | 2019-02-17 10:08 | Discharge Summary ---
Providers - Providers Date of Admission: 02/15/19 13:23 Attending physician: KT ROBERT MD 02/15/19 13:16 Consult to Interventional Radiology [CONS] Routine Consulting Provider: QUIRINO BRYAN Reason For Exam: LUNG BIOPSY, HX. LUNG CA, HX. PNEUMOTHRAX Place consult to:: DR. QUIRINO BURKETT Notified:: KANDIS Phone number called:: [phone] Was contact made?: Yes If yes, spoke with:: KANDIS LALA OFFICE Time called:: 13:32 02/15/19 17:12 Consult to Dietitian/Nutrition [CONS] Routine Physician Instructions: Reason For Exam: Reason for Consult: Poor oral intake 02/15/19 18:13 Consult to Physician [CONS] Routine Comment: Consulting Provider: KT ROBERT Physician Instructions: Reason For Exam: HTN Primary care physician: GUN PERFORATOR Hospitalization Hospital course: 58-year-old man with metastatic cancer of unknown origin. Patient was admitted to the hospital and was planned for biopsy. However being a holiday, he could not be scheduled until next week. Discussed this with the oncologist and with the interventional radiologist. Patient will follow up with Dr. Bryan of IR at an outpatient and be scheduled to get the liver biopsy next Thursday. Diagnosis Metastatic cancer of unknown origin, with lesions in liver lung and bone Disposition: TO HOME OR SELFCARE Time spent for discharge: 33 mins Core Measure Documentation - Palliative Care Palliative Care/ Comfort Measures: Not Applicable - Core Measures Any of the following diagnoses?: none Exam - Constitutional Vitals: Temp Pulse Resp BP Pulse Ox 97.7 F 96 H 20 146/88 94 02/17/19 05:51 02/17/19 06:41 02/17/19 05:51 02/17/19 06:41 02/17/19 05:51 General appearance: Present: no acute distress, well-nourished - EENT Eyes: Present: PERRL ENT: hearing intact, clear oral mucosa - Neck Neck: Present: supple, normal ROM - Respiratory Respiratory effort: normal Respiratory: bilateral: CTA - Cardiovascular Heart Sounds: Present: S1 & S2. Absent: rub, click - Extremities Extremities: pulses symmetrical, No edema Peripheral Pulses: within normal limits - Abdominal General gastrointestinal: Present: soft, non-tender, non-distended, normal bowel sounds Male genitourinary: Present: normal - Integumentary Integumentary: Present: clear, warm, dry - Musculoskeletal Musculoskeletal: gait normal, strength equal bilaterally - Psychiatric Psychiatric: appropriate mood/affect, intact judgment & insight - Neurologic Neurologic: CNII-XII intact, moves all extremities Plan Follow up with: PRIMARY CARE, [Primary Care Provider] - 7 Days
[2019-02-17] MEDS: allopurinoL 100 MG TAB PO SCH (10:39)
== END 2019-02-17 13:10 | disposition home or self-care (01) | DRG 181 ==
LOC: 3A 12:42 → UNDOADMIN 12:42 → 3A 13:23
PROVIDERS: ADMIT Internal Medicine Hematology & Oncology; ATTEND Internal Medicine
PROC: 3E0234Z Introduction of Serum, Toxoid and Vaccine into Muscle, Percutaneous Approach (ICD-10-PCS; principal; 2019-02-15)
DX: C34.90 Malignant neoplasm of unspecified part of unspecified bronchus or lung (principal); J93.83 Other pneumothorax; C78.7 Secondary malignant neoplasm of liver and intrahepatic bile duct; E44.0 Moderate protein-calorie malnutrition; D64.9 Anemia, unspecified; I10 Essential (primary) hypertension; Z79.899 Other long term (current) drug therapy; Z23 Encounter for immunization; Z82.49 Family history of ischemic heart disease and other diseases of the circulatory system; Z83.3 Family history of diabetes mellitus; Z68.21 Body mass index [BMI] 21.0-21.9, adult
CPT/HCPCS: 36415; 71045; 71046; 71250; 74176; 80053; 82607; 82728; 82747; 83550; 85007; 85025; 85610; 85730; 90686; 90732; 99406; G0378; J0360; J2405; J7030